=== PATIENT | male | born 1960 | race Caucasian/White ===

== ENCOUNTER 2016-11-21 08:06 | Day surgery (SDC) | payer MEDICAID ==
[2015-11-15 09:00] VITALS: BMI 24.4
[2016-11-21] MEDS ORDERED: Lactated Ringer's 1,000 ML IV ONE (11:15)
[2016-11-21] MEDS ORDERED: Propofol 10 mg/ml Inj (20 ML) ONE ×2 (11:18→11:33)
[2016-11-21 12:25] VITALS: RESP 12; TEMP 96.9; O2SAT 100
[2016-11-21 12:30] VITALS: BP 121/82; PULSE 61
== END 2016-11-21 12:27 | disposition home or self-care (01) ==
LOC: C.ENDO 08:06
PROVIDERS: ATTEND Internal Medicine Gastroenterology
DX: Z12.11 Encounter for screening for malignant neoplasm of colon (principal)
CPT/HCPCS: 45378; J2704; J7120